=== PATIENT | male | born 1935 | race American Indian/Alaskan Native ===

== ENCOUNTER 2021-11-16 00:26 | Emergency (ER) | payer MEDICARE ==
--- NOTE | 2021-11-16 01:09 | Emergency Department Report ---
ED Male HPI - General Chief complaint: Urogenital-Male Stated complaint: CATHETER REPLACEMENT Time Seen by Provider: 11/16/21 01:04 Source: patient, family (other: personnel director), EMS Mode of arrival: Ambulatory Limitations: Altered Mental Status - History of Present Illness Initial comments: 86-year-old male with a past medical history of chronic urinary retention currently on Flomax and needs to self cath to relieve his bladder, hypertension, and dementia presents to the hospital for urinary retention. Patient apparently was recently transferred from an assisted living facility to his current residence today. I spoke to Sherice Lam at the residence. She states that she was informed that patient was able to self cath while at the assisted living facility. However, this evening he was uncomfortable, complaining of abdominal pain, and seemed to have "forgotten" how to self cath. He also refused to allow her to assist him. EMS does report that patient was uncomfortable and restless in their care. After ED arrival patient went to the bathroom and self cathed without assistance and symptoms immediately improved. Patient is oriented to self, year of , knows he is in a hospital and states the year is 1999 something. He is otherwise cooperative Patient currently resides at [address] [place] [address] [employer] Sherice Lam [phone] - Related Data Allergies Allergy/AdvReac Type Severity Reaction Status Date / Time No Known Allergies Allergy Verified 11/16/21 02:35 ED Review of Systems ROS: Stated complaint: CATHETER REPLACEMENT Other details as noted in HPI Comment: All other systems reviewed and negative ED Past Medical Hx - Past Medical History Hx Dementia: Yes Additional medical history: Unk urinary issue; uses personal catheter to drain bladder - Surgical History Additional Surgical History: Unknown ED Physical Exam - General Limitations: Altered Mental Status - Other Other exam information: General: No acute distress Head: Atraumatic Eyes: normal appearance ENT: Moist mucous membranes Neck: Normal appearance, no midline tenderness Chest: Clear to auscultation bilaterally CV: Regular rate and rhythm Abdomen: Soft, normal bowel sounds, nontender, nondistended, no rebound or guarding Back: Normal inspection Extremity: Normal inspection, full range of motion Neuro: Alert O x 2, no facial asymmetry, speech clear, no gross motor sensory deficit Psych: Appropriate behavior Skin: No rash ED Course Vital Signs 11/16/21 11/16/21 00:41 09:16 Temperature 98.2 F 97.8 F Pulse Rate 90 99 H Respiratory 18 18 Rate Blood Pressure 170/100 138/84 [Right] O2 Sat by Pulse 98 97 Oximetry - Reevaluation(s) Reevaluation #1: 11/16/21 04:22 Patient is cooperative but exhibiting wandering behavior ED Medical Decision Making - Lab Data Result diagrams: 11/16/21 01:31 11/16/21 01:31 - Medical Decision Making 86-year male presents to the hospital from new personal shelter with complaint of unable to perform self cath and refusal to be assisted. Upon arrival patient immediately was able to self cath and relieve urine obstruction. Labs unremarkable. We are awaiting patient to self cath again and provide a urine sample. Patient will be signed out to oncoming provider to follow-up UA result, reconfirm patient is able to perform self cath Plan to discharge patient back to personal shelter. If personal shelter is unable to manage patient secondary to his dementia then case management may need to be consulted for assistance with placement Critical Care Time: No Critical care attestation.: If time is entered above; I have spent that time in minutes in the direct care of this critically ill patient, excluding procedure time. ED Disposition Clinical Impression: Acute on chronic urinary retention, Self-catheterizes urinary bladder, Dementia Disposition: HOME / SELF CARE / HOMELESS Is pt being admited?: No Condition: Stable Instructions: Clean Intermittent Catheterization, Male, Dementia Caregiver Guide, Acute Urinary Retention, Male, Dementia, [id number] Referrals: PRIMARY CAREMD [Primary Care Provider] - 3-5 Days
[2021-11-16 02:05] LABS: Basophils % (Auto) 0.6 % (0.0-1.8); Eosinophils % (Auto) 0.6 % (0.0-4.3); Hematocrit 37.1 % (35.5-45.6); Hemoglobin 11.6 gm/dl (11.8-15.2); Lymphocytes # (Auto) 0.8 K/mm3 (1.2-5.4); Lymphocytes % (Auto) 16.2 % (13.4-35.0); Mean Corpuscular HGB Conc 31 % (32-34); Mean Corpuscular Volume 89 fl (84-94); Monocytes # (Auto) 0.5 K/mm3 (0.0-0.8); Monocytes % (Auto) 9.7 % (0.0-7.3); Platelet Count 209 K/mm3 (140-440); Red Blood Count 4.16 M/mm3 (3.65-5.03); Red Cell Distribution Width 12.8 % (13.2-15.2)
[2021-11-16 02:22] LABS: BUN/Creatinine Ratio 9; Blood Urea Nitrogen 10 mg/dL (9-20); Calcium 8.8 mg/dL (8.4-10.2); Hemolysis Index 1
[2021-11-16] MEDS ORDERED: POTASSIUM CHLORIDE ER 20 MEQ TAB PO ONE (02:29)
--- NOTE | 2021-11-16 06:02 | Emergency Department Report ---
Blank Doc - Documentation Documentation: 0600-I assumed care. UA is pending. 1035-UA is still pending. Straight cath has been ordered. Patient had apparently self cath earlier. He was subsequently discharged.
[2021-11-16 09:18] VITALS: BP 138/84
== END 2021-11-16 16:01 | disposition home or self-care (01) ==
LOC: ED 00:26
DX: R33.9 Retention of urine, unspecified (principal); F03.90 Unspecified dementia, unspecified severity, without behavioral disturbance, psychotic disturbance, mood disturbance, and anxiety
CPT/HCPCS: 36415; 51702; 80048; 85025; 99283